=== PATIENT | female | born 1995 | race Caucasian/White ===

== ENCOUNTER 2020-07-10 04:31 | Observation (INO) | payer OTHER, SELFPAY ==
[2020-07-10] VITALS (22 sets, daily range): BP systolic 93–126; BP diastolic 60–108; PULSE 61–90; RESP 10–25; TEMP 36.4–36.7; O2SAT 96–100; BMI 24.0
--- NOTE | 2020-07-10 05:02 | CTR_ITS ---
PROCEDURE INFORMATION: Exam: CT Abdomen And Pelvis With Contrast Exam date and time: 07/10/2020 5:04 AM Age: 24 years old Clinical indication: Pain and abnormal findings; Abnormal lab test; Elevated wbc; Abdominal pain; Localized; Right lower quadrant (rlq); Patient HX: Rlq pain. Wbc of 17k. ; Additional info: Abd pain TECHNIQUE: Imaging protocol: Computed tomography of the abdomen and pelvis with contrast. Radiation optimization: All CT scans at this facility use at least one of these dose optimization techniques: automated exposure control; mA and/or kV adjustment per patient size (includes targeted exams where dose is matched to clinical indication); or iterative reconstruction. Contrast material: OMNI 300; Contrast volume: 95 ml; Contrast route: INTRAVENOUS (IV); COMPARISON: No relevant prior studies available. RADIATION DOSE METRICS: Total DLP (mGy-cm): 516.62 FINDINGS: Liver: Normal. No mass. Gallbladder and bile ducts: Normal. No calcified stones. No ductal dilation. Pancreas: Normal. No ductal dilation. Spleen: Normal. No splenomegaly. Adrenal glands: Normal. No mass. Kidneys and ureters: Normal. No hydronephrosis. Stomach and bowel: Unremarkable. No obstruction. No mucosal thickening. Appendix: There is a prominent inflammatory process in the right lower quadrant. The appendix is dilated to a diameter of 1.5 cm with a thickened enhancing wall. There is an 8 mm appendicoliths. There is prominent infiltration of the fat around the appendix with small amount of extraluminal fluid. There is also free fluid down in the pelvis. These findings are consistent with perforated appendicitis. Intraperitoneal space: There is a small amount of periappendiceal fluid and in the pelvis.. Vasculature: Unremarkable. No abdominal aortic aneurysm. Lymph nodes: Unremarkable. No enlarged lymph nodes. Urinary bladder: Unremarkable as visualized. Reproductive: Unremarkable as visualized. Bones/joints: Unremarkable. No acute fracture. Soft tissues: Unremarkable. CT/CT abdomen pelvis w con* [id number] IMPRESSION: Acute perforated appendicitis. Radiation Dose CTDIVOL = (mGy): DLP = 516.62 (mGy-cm)
--- NOTE | 2020-07-10 05:03 | ED_ITS ---
Documented by User: Ashley Kirkland MD 07/10/20 05:04 HPI - Abdominal Pain General: Chief Complaint: Abdominal Pain Stated Complaint: r sided abd pain/nausea Time Seen by Provider: 07/10/20 04:38 Source: patient Mode of arrival: ambulatory Limitations: no limitations History of Present Illness: HPI narrative: 24-year-old female states that she has been having right lower quadrant pain since yesterday. States it got much worse through the night. States it is worse with movement and with palpation. States her pain is currently 9 out of 10. She has had nausea no vomiting. Her last menstruation was 1 week ago. She denies any vaginal discharge. MD elicited complaint: abdominal pain Associated Symptoms: Reports nausea; Denies chills, dysuria and fever(s) Related Data: Date of Last Menstrual Period: 07/03/20 Review of Systems Const: Denies: fever(s), chills, body aches or change in appetite Eyes: Denies: blurry vision or eye discomfort ENMT: Denies: throat pain or dental pain Card: Denies: chest pain Resp: Denies: dyspnea GI: Reports: abdominal pain and nausea : Denies: dysuria Musc: Denies: neck pain or back pain Skin/Breast: Denies: rash Neuro: Denies: headache(s) Psych: Denies: depression Bhargav/Lymph: Denies: easy bruising All/Imm: Denies: urticaria [facility] Female Reproductive History: Date of last menstrual period: 07/03/20 Physical Exam Const: COMMON NORMALS: no acute distress, patient oriented x3 and healthy appearing HENMT: COMMON NORMALS: normocephalic and atraumatic HEAD & SCALP: normocephalic and atraumatic Eye: COMMON NORMALS: Equal, round and reactive pupils present and EOMs intact bilaterally PUPIL: Yes Equal, round and reactive pupils present Neck/C-Spine: COMMON NORMALS: full ROM and supple Chest: COMMONS NORMALS: normal inspection of the chest and normal palpation of entire chest wall Resp: COMMON NORMALS: normal respiratory effort, No retractions, No use of accessory muscles and clear to auscultation bilaterally AUSCULTATION: clear to auscultation bilaterally Cardio: COMMON NORMALS: regular rate, regular rhythm and No murmurs present (Cardio) RATE: regular rate RHYTHM: regular rhythm GI: COMMON NORMALS: Normal to inspection, nondistended, normoactive bowel sounds present, Soft to palpation and no masses PALPATION: Yes Soft to palpation and Yes Tenderness to palpation present (GI) Details: RLQ Extremity: COMMON NORMALS: normal to inspection and full ROM Neuro: COMMON NORMALS: patient oriented x3, moves all extremities and no focal motor deficits Psych: COMMON NORMALS: mental status grossly normal, Normal thought process present and cooperative THOUGHT PROCESS: Normal thought process present Skin: COMMON NORMALS: no rashes or lesions noted and no wounds GENERAL SKIN EXAM: no rashes or lesions noted Course Vital Signs: Vital signs: Vital Signs Temperature 98.1 F 07/10/20 04:47 Pulse Rate 75 07/10/20 05:30 Respiratory Rate 16 07/10/20 05:30 Blood Pressure 125/75 07/10/20 05:30 Pulse Oximetry 100 07/10/20 05:30 MDM - Abdominal Pain Lab Data: Labs: Lab Results 07/10/20 07/10/20 07/10/20 Range/Units 05:00 05:02 05:02 WBC 17.3 H (4.0-10.0) 10^3/ uL RBC 4.32 (4.1-5.3) 10^6/u L Hgb 13.8 (11.5-15.3) g/dL Hct 39.2 (37.0-47.0) % MCV 90.7 (81-99) fL MCH 31.9 (28.0-34.0) pg MCHC 35.2 (30.0-36.0) g/dL RDW 12.1 (12.1-15.1) % Plt Count 268 (130-400) 10^3/c mm MPV 9.4 (7.4-10.4) fL Neut % (Auto) 86.7 % Lymph % (Auto) 6.5 % [place] % (Auto) 5.9 % Eos % (Auto) 0.1 % Baso % (Auto) 0.3 % Neut # (Auto) 15.01 H (1.8-7.7) 10^3/u L Lymph # (Auto) 1.1 (0.8-4.8) 10^3/u L [place] # (Auto) 1.0 H (0.2-0.9) 10^3/u L Eos # (Auto) 0.0 (0.0-0.8) 10^3/u L Baso # (Auto) 0.1 (0.0-0.1) 10^3/u L Nucleated RBC % (a uto) 0 % Nucleated RBCs # 0.0 /100WBC Sodium 136 (136-145) mmol/L Potassium 3.7 (3.5-5.1) mmol/L Chloride 99 (98-107) mmol/L Carbon Dioxide 27 (22-29) mmol/L Anion Gap 13.7 (5-19) BUN 8 (6-20) mg/dL Creatinine 0.5 (0.5-0.9) mg/dL GFR Calculation 154.3 H (90-130) mL/min Glucose 116 H (65-115) mg/dL Calculated Osmolal ity 281 L (285-295) mOsm/k g Calcium 8.7 (8.5-10.5) mg/dL Total Bilirubin 0.7 (0.15-1.2) mg/dL AST 15 (0-32) U/L ALT 12 (0-33) U/L Alkaline Phosphata se 57 (35-105) IU/L Total Protein 7.9 (6.6-8.7) g/dL Albumin 4.4 (3.5-5.2) g/dL Globulin 3.5 (1.3-4.6) g/dL Lipase 21 (13-60) U/L HCG, Qual (Negative) Urine Color Yellow (Yellow) Urine Appearance Clear (CLEAR) Urine pH 5 (5-7) Ur Specific Gravit y 1.020 (1.005-1.030) Urine Protein Neg (Negative) Urine Glucose (UA) Norm (Normal) Urine Ketones Negative (Negative) Urine Blood Neg (Negative) Urine Nitrate Negative (Negative) Urine Bilirubin Neg (Negative) Urine Urobilinogen Norm (Negative) mg/dL Ur Leukocyte Renae ase Negative (Negative) 07/10/20 Range/Units 05:02 WBC (4.0-10.0) 10^3/ uL RBC (4.1-5.3) 10^6/u L Hgb (11.5-15.3) g/dL Hct (37.0-47.0) % MCV (81-99) fL MCH (28.0-34.0) pg MCHC (30.0-36.0) g/dL RDW (12.1-15.1) % Plt Count (130-400) 10^3/c mm MPV (7.4-10.4) fL Neut % (Auto) % Lymph % (Auto) % [place] % (Auto) % Eos % (Auto) % Baso % (Auto) % Neut # (Auto) (1.8-7.7) 10^3/u L Lymph # (Auto) (0.8-4.8) 10^3/u L [place] # (Auto) (0.2-0.9) 10^3/u L Eos # (Auto) (0.0-0.8) 10^3/u L Baso # (Auto) (0.0-0.1) 10^3/u L Nucleated RBC % (a uto) % Nucleated RBCs # /100WBC Sodium (136-145) mmol/L Potassium (3.5-5.1) mmol/L Chloride (98-107) mmol/L Carbon Dioxide (22-29) mmol/L Anion Gap (5-19) BUN (6-20) mg/dL Creatinine (0.5-0.9) mg/dL GFR Calculation (90-130) mL/min Glucose (65-115) mg/dL Calculated Osmolal ity (285-295) mOsm/k g Calcium (8.5-10.5) mg/dL Total Bilirubin (0.15-1.2) mg/dL AST (0-32) U/L ALT (0-33) U/L Alkaline Phosphata se (35-105) IU/L Total Protein (6.6-8.7) g/dL Albumin (3.5-5.2) g/dL Globulin (1.3-4.6) g/dL Lipase (13-60) U/L HCG, Qual Negative (Negative) Urine Color (Yellow) Urine Appearance (CLEAR) Urine pH (5-7) Ur Specific Gravit y (1.005-1.030) Urine Protein (Negative) Urine Glucose (UA) (Normal) Urine Ketones (Negative) Urine Blood (Negative) Urine Nitrate (Negative) Urine Bilirubin (Negative) Urine Urobilinogen (Negative) mg/dL Ur Leukocyte Renae ase (Negative) Discharge Plan Discharge Patient Disposition: Placed in Observation Clinical Impression: Acute appendicitis with perforation and localized peritonitis Coding Level of Care Code ED Marketing Intern for [facility] Fwd Exam Comprehensive Documented by User: Jordan Baker MD 07/10/20 07:07 HPI - Abdominal Pain General: Chief Complaint: Abdominal Pain Stated Complaint: r sided abd pain/nausea Time Seen by Provider: 07/10/20 04:38 Course Reevaluation(s): Reevaluation #1: CT renal scan returned shows patient has a early perforated appendicitis. Discussed at length with patient patient was been sipping on Sprite since early this morning. Patient is advised to keep stay n.p.o. Will be evaluated by general surgeon for possible appendix removal this afternoon. Patient states understanding. Awaiting general surgery to return call. Time: 06:50 Consultations: Consultation #1: I did discuss with general surgery Dr. Patrick he request patient be placed on Zosyn. He will see patient prepare for the OR. Time: 06:55 Vital Signs: Vital signs: Vital Signs Temperature 98.1 F 07/10/20 04:47 Pulse Rate 75 07/10/20 05:30 Respiratory Rate 16 07/10/20 05:30 Blood Pressure 125/75 07/10/20 05:30 Pulse Oximetry 100 07/10/20 05:30 MDM - Abdominal Pain Differential Diagnosis: Differential diagnosis abdominal pain: Likely abdominal pain, acute appendicitis, constipation, gastroenteritis and small bowel obstruction Lab Data: Labs: Lab Results 07/10/20 07/10/20 07/10/20 Range/Units 05:00 05:02 05:02 WBC 17.3 H (4.0-10.0) 10^3/ uL RBC 4.32 (4.1-5.3) 10^6/u L Hgb 13.8 (11.5-15.3) g/dL Hct 39.2 (37.0-47.0) % MCV 90.7 (81-99) fL MCH 31.9 (28.0-34.0) pg MCHC 35.2 (30.0-36.0) g/dL RDW 12.1 (12.1-15.1) % Plt Count 268 (130-400) 10^3/c mm MPV 9.4 (7.4-10.4) fL Neut % (Auto) 86.7 % Lymph % (Auto) 6.5 % [place] % (Auto) 5.9 % Eos % (Auto) 0.1 % Baso % (Auto) 0.3 % Neut # (Auto) 15.01 H (1.8-7.7) 10^3/u L Lymph # (Auto) 1.1 (0.8-4.8) 10^3/u L [place] # (Auto) 1.0 H (0.2-0.9) 10^3/u L Eos # (Auto) 0.0 (0.0-0.8) 10^3/u L Baso # (Auto) 0.1 (0.0-0.1) 10^3/u L Nucleated RBC % (a uto) 0 % Nucleated RBCs # 0.0 /100WBC Sodium 136 (136-145) mmol/L Potassium 3.7 (3.5-5.1) mmol/L Chloride 99 (98-107) mmol/L Carbon Dioxide 27 (22-29) mmol/L Anion Gap 13.7 (5-19) BUN 8 (6-20) mg/dL Creatinine 0.5 (0.5-0.9) mg/dL GFR Calculation 154.3 H (90-130) mL/min Glucose 116 H (65-115) mg/dL Calculated Osmolal ity 281 L (285-295) mOsm/k g Calcium 8.7 (8.5-10.5) mg/dL Total Bilirubin 0.7 (0.15-1.2) mg/dL AST 15 (0-32) U/L ALT 12 (0-33) U/L Alkaline Phosphata se 57 (35-105) IU/L Total Protein 7.9 (6.6-8.7) g/dL Albumin 4.4 (3.5-5.2) g/dL Globulin 3.5 (1.3-4.6) g/dL Lipase 21 (13-60) U/L HCG, Qual (Negative) Urine Color Yellow (Yellow) Urine Appearance Clear (CLEAR) Urine pH 5 (5-7) Ur Specific Gravit y 1.020 (1.005-1.030) Urine Protein Neg (Negative) Urine Glucose (UA) Norm (Normal) Urine Ketones Negative (Negative) Urine Blood Neg (Negative) Urine Nitrate Negative (Negative) Urine Bilirubin Neg (Negative) Urine Urobilinogen Norm (Negative) mg/dL Ur Leukocyte Renae ase Negative (Negative) 07/10/20 Range/Units 05:02 WBC (4.0-10.0) 10^3/ uL RBC (4.1-5.3) 10^6/u L Hgb (11.5-15.3) g/dL Hct (37.0-47.0) % MCV (81-99) fL MCH (28.0-34.0) pg MCHC (30.0-36.0) g/dL RDW (12.1-15.1) % Plt Count (130-400) 10^3/c mm MPV (7.4-10.4) fL Neut % (Auto) % Lymph % (Auto) % [place] % (Auto) % Eos % (Auto) % Baso % (Auto) % Neut # (Auto) (1.8-7.7) 10^3/u L Lymph # (Auto) (0.8-4.8) 10^3/u L [place] # (Auto) (0.2-0.9) 10^3/u L Eos # (Auto) (0.0-0.8) 10^3/u L Baso # (Auto) (0.0-0.1) 10^3/u L Nucleated RBC % (a uto) % Nucleated RBCs # /100WBC Sodium (136-145) mmol/L Potassium (3.5-5.1) mmol/L Chloride (98-107) mmol/L Carbon Dioxide (22-29) mmol/L Anion Gap (5-19) BUN (6-20) mg/dL Creatinine (0.5-0.9) mg/dL GFR Calculation (90-130) mL/min Glucose (65-115) mg/dL Calculated Osmolal ity (285-295) mOsm/k g Calcium (8.5-10.5) mg/dL Total Bilirubin (0.15-1.2) mg/dL AST (0-32) U/L ALT (0-33) U/L Alkaline Phosphata se (35-105) IU/L Total Protein (6.6-8.7) g/dL Albumin (3.5-5.2) g/dL Globulin (1.3-4.6) g/dL Lipase (13-60) U/L HCG, Qual Negative (Negative) Urine Color (Yellow) Urine Appearance (CLEAR) Urine pH (5-7) Ur Specific Gravit y (1.005-1.030) Urine Protein (Negative) Urine Glucose (UA) (Normal) Urine Ketones (Negative) Urine Blood (Negative) Urine Nitrate (Negative) Urine Bilirubin (Negative) Urine Urobilinogen (Negative) mg/dL Ur Leukocyte Renae ase (Negative) Critical Care Time Critical Care Time: Critical Care Time: No Discharge Plan Discharge Patient Disposition: Placed in Observation Clinical Impression: Acute appendicitis with perforation and localized peritonitis Coding Level of Care Code ED Marketing Intern for [facility] Fwd Exam Comprehensive
[2020-07-10] MEDS: ondansetron 2 mg/ML SDV 2 mL 4 MG IVP ×2 (05:04→07:44)
[2020-07-10 05:06] LABS: Add Urine Microscopic? NO
[2020-07-10] MEDS: morphine 4 mg/mL SDV 1 mL IVP ×2 (05:06→07:44)
[2020-07-10] MEDS: sodium chloride 0.9% 1,000 ML 999 ML IV (05:09)
[2020-07-10 05:11] LABS: Basophils # 0.1 10^3/uL (0.0-0.1); Basophils % 0.3 %; Eosinophils % 0.1 %; Hematocrit 39.2 % (37.0-47.0); Hemoglobin 13.8 g/dL (11.5-15.3); Lymphocytes # 1.1 10^3/uL (0.8-4.8); Lymphocytes % 6.5 %; Mean Corpuscular HGB Conc 35.2 g/dL (30.0-36.0); Mean Corpuscular Hemoglobin 31.9 pg (28.0-34.0); Mean Corpuscular Volume 90.7 fL (81-99); Mean Platelet Volume 9.4 fL (7.4-10.4); Monocytes % 5.9 %; Neutrophils # 15.01 10^3/uL (1.8-7.7); Neutrophils % 86.7 %; Nucleated Red Blood Cells % 0 %; Platelet Count 268 10^3/cmm (130-400); Red Blood Count 4.32 10^6/uL (4.1-5.3); Red Cell Distribution Width 12.1 % (12.1-15.1); White Blood Count 17.3 10^3/uL (4.0-10.0)
[2020-07-10 05:24] LABS: Alanine Aminotransferase 12 U/L (0-33); Albumin Level 4.4 g/dL (3.5-5.2); Alkaline Phosphatase 57 IU/L (35-105); Anion Gap 13.7 (5-19); Aspartate Amino Transferase 15 U/L (0-32); Blood Urea Nitrogen 8 mg/dL (6-20); Calcium 8.7 mg/dL (8.5-10.5); Carbon Dioxide 27 mmol/L (22-29); Chloride 99 mmol/L (98-107); Globulin 3.5 g/dL (1.3-4.6); Glomerular Filtration Rate 154.3 mL/min (90-130); Glucose 116 mg/dL (65-115); Lipase 21 U/L (13-60); Osmolality Calculated 281 mOsm/kg (285-295); Potassium 3.7 mmol/L (3.5-5.1); Sodium 136 mmol/L (136-145); Total Bilirubin 0.7 mg/dL (0.15-1.2); Total Protein 7.9 g/dL (6.6-8.7)
[2020-07-10 05:37] LABS: Bilirubin Urine Neg (Negative); Blood Urine Neg (Negative); Glucose Urine UA Norm (Normal); Ketones Urine Negative (Negative); Leukocyte Esterase Urine Negative (Negative); Nitrate Urine Negative (Negative); Protein Urine Neg (Negative); Urine Appearance Clear (CLEAR); Urine Color Yellow (Yellow); Urobilinogen Urine Norm (Negative); pH Urine 5 (5-7)
[2020-07-10 05:37] LABS: HCG Qualitative Urine. Negative (Negative)
[2020-07-10] MEDS: iohexol 300 mg/mL 100 mL Btl IV (05:54)
[2020-07-10] MEDS: piperacillin-tazobactam 3.375 GM in sodium chloride 0.9% (plus) 50 ML IV ×2 (07:18→13:30)
[2020-07-10] MEDS: sodium chloride 0.9% 1,000 ML 100 ML IV (07:18)
--- NOTE | 2020-07-10 09:36 | PM.HP ---
Providers/Chief Complaint Admitting Physician: Nitin Patrick MD Chief Complaint: r sided abd pain/nausea History of Present Illness Edith Shearer is a 24 year old female who presented to the ER this morning with 36-hour history of abdominal pain. The patient stated the pain started in the right lower quadrant, did not migrate, did not radiate, worse with physical activity. Patient had some nausea denies vomiting has chills no fevers. Denies any constipation or diarrhea. Review of Systems General: Reports: 10 or more systems reviewed and unremarkable except in HPI and below Medications/Allergies Home Medications Medication Instructions Recorded Confirmed Last Taken Type norethindrone-e.estradiol-iron [Lo 1 tab PO DAILY 07/10/20 07/10/20 07/09/20 20:00 History Loestrin Fe] Allergies Allergy/AdvReac Type Severity Reaction Status Date / Time No Known Allergies Allergy Verified 07/10/20 04:51 PFSH Acute Female Reproductive History: Date of last menstrual period: 07/03/20 Vitals/I&O/Wt Last Vital Signs Temp 98.1 F 07/10/20 04:47 Pulse 80 07/10/20 08:49 Resp 18 07/10/20 08:49 BP 105/70 07/10/20 08:49 Pulse Ox 97 07/10/20 08:49 07/09/20 07/10/20 07/10/20 22:59 06:59 14:59 Intake Total 1050 / 1050 Balance 1050 / 1050 Weight last 48 hrs Weight 163 lb Physical Exam Narrative: EXAM NARRATIVE: HEENT: Normocephalic Eye: Sclera /conjunctiva normal Respiratory and chest: Bilateral clear breath sounds on auscultation Cardiovascular: Normal S1 and S2 heart sounds Abdomen: Soft to palpation, tender right lower quadrant, guarding present Neurological: Oriented to place person and time Skin: Intact, no lesions appreciated on gross exam Data : 07/10/20 05:02 07/10/20 05:02 A&P Assessment and plan (1) Acute appendicitis with perforation and localized peritonitis: 24-year-old female with right lower quadrant pain, nausea, chills, leukocytosis and CT scan showing acute appendicitis with contained perforation. Discussed findings with the patient Plan for laparoscopic possible open appendectomy Procedure, risks, benefits and alternatives have been discussed with the patient who wishes to proceed with surgery. Status: Acute Attestations Medical Necessity Statement*: Acute appendicitis requiring surgery Coding Level of Care Code Acute Manager Pulmonary for [facility] Fwd Diagnoses Acute appendicitis with perforation and localized peritonitis K35.32
--- NOTE | 2020-07-10 10:40 | P.ANESASSM_ITS ---
Pre-Anesthetic Assessment Pre-Anesthetic Assessment: Height/Weight: Height 1.75 m Weight 73.936 kg Temp Pulse Resp BP Pulse Ox 97.6 F 83 18 116/61 99 07/10/20 09:52 07/10/20 09:52 07/10/20 09:52 07/10/20 09:52 07/10/20 09:52 Preop Diagnosis: Acute appendicitis Proposed Procedure: Operation Date: 07/10/20 11:50 Proposed Procedures p Laparoscopic Appendectomy(Not Applicable) - Nitin Patrick MD Was Beta Maurilio taken within 24 hours: N/A Social: Social History: No alcohol and No tobacco Exam: Pre-Anes Outpt Exam: alert, oriented x 3, clear to auscultation bilaterally and regular rate & rhythm Airway: Submandibular: WNL Cervical ROM: WNL MP: 2 Dentition: Full History/ROS: No significant history except as noted GI: Comments: acute appe Anesthetic Plan: ASA status: 2 Anesthesia: General Other: Mod RSI Risk of > 500 ml blood loss (7ml/kg in children): No Meds/Allergies Current Medications: Current Medications Generic Name Dose Route Start Last Admin Trade Name Freq PRN Reason Stop Dose Admin Sodium Chloride 1,000 mls @ 100 m ls/hr 07/10/20 07:00 07/10/20 09:52 Sodium Chloride 0.9% IV Infused .Q10H DEB Infusion Morphine Sulfate 4 mg 07/10/20 07:28 07/10/20 07:44 Morphine 4 Mg/Ml Sdv 1 Ml IVP 4 mg Q5M PRN Administration SEVERE PAIN PFSH Anesthesia Female Reproductive History: Date of last menstrual period: 07/03/20 Data Anesthesia CBC & Chem 7: 07/10/20 05:02 07/10/20 05:02 Other Labs: Laboratory Results - last 48 hr 07/10/20 07/10/20 07/10/20 05:00 05:02 05:02 WBC 17.3 H RBC 4.32 Hgb 13.8 Hct 39.2 MCV 90.7 MCH 31.9 MCHC 35.2 RDW 12.1 Plt Count 268 MPV 9.4 Neut % (Auto) 86.7 Lymph % (Auto) 6.5 [place] % (Auto) 5.9 Eos % (Auto) 0.1 Baso % (Auto) 0.3 Neut # (Auto) 15.01 H Lymph # (Auto) 1.1 [place] # (Auto) 1.0 H Eos # (Auto) 0.0 Baso # (Auto) 0.1 Nucleated RBC % (auto) 0 Nucleated RBCs # 0.0 Sodium 136 Potassium 3.7 Chloride 99 Carbon Dioxide 27 Anion Gap 13.7 BUN 8 Creatinine 0.5 GFR Calculation 154.3 H Glucose 116 H Calculated Osmolality 281 L Calcium 8.7 Total Bilirubin 0.7 AST 15 ALT 12 Alkaline Phosphatase 57 Total Protein 7.9 Albumin 4.4 Globulin 3.5 Lipase 21 HCG, Qual Urine Color Yellow Urine Appearance Clear Urine pH 5 Ur Specific [place] 1.020 Urine Protein Neg Urine Glucose (UA) Norm Urine Ketones Negative Urine Blood Neg Urine Nitrate Negative Urine Bilirubin Neg Urine Urobilinogen Norm Ur Leukocyte Esterase Negative 07/10/20 05:02 WBC RBC Hgb Hct MCV MCH MCHC RDW Plt Count MPV Neut % (Auto) Lymph % (Auto) [place] % (Auto) Eos % (Auto) Baso % (Auto) Neut # (Auto) Lymph # (Auto) [place] # (Auto) Eos # (Auto) Baso # (Auto) Nucleated RBC % (auto) Nucleated RBCs # Sodium Potassium Chloride Carbon Dioxide Anion Gap BUN Creatinine GFR Calculation Glucose Calculated Osmolality Calcium Total Bilirubin AST ALT Alkaline Phosphatase Total Protein Albumin Globulin Lipase HCG, Qual Negative Urine Color Urine Appearance Urine pH Ur Specific [place] Urine Protein Urine Glucose (UA) Urine Ketones Urine Blood Urine Nitrate Urine Bilirubin Urine Urobilinogen Ur Leukocyte Esterase Cardiac Studies: No Data to Display
[2020-07-10] MEDS: sodium chloride 0.9% 1,000 ML 30 ML IV (12:30)
--- NOTE | 2020-07-10 14:26 | PM.OP ---
Operative Report Date of procedure: July 10, 2020 Pre-op Diagnosis: Acute appendicitis Post-op Findings: Acute appendicitis Procedure Done: Laparoscopic appendectomy Specimens removed/disposition: Appendix Surgeon: Nitin Patrick Anesthesia: General Condition: stable Disposition: PACU Procedure: The patient was taken to the Operating Room and intubated under general anesthesia after antibiotic had been administered. Using a 15 blade, a 1-cm infraumbilical incision was made and using open Maame technique, the peritoneal cavity was entered. A 12mm port with balloon was placed and 14 mm of pneumoperitoneum was created and 10-mm 30 degree scope was introduced. Two separate 5mm ports were placed in the left and right lower quadrant under direct visualization. The appendix was noted in the right lower quadrant, inflamed and adherent to the cecal wall.. Using [place] forceps, an opening was made in the mesoappendix near the base of the appendix. An Endo LOVE stapler 45mm long 3.5mm blue load was introduced to divide the appendix at it's base. Using electrocautery, the mesoappendix including the appendicular artery was divided. There was no bleeding noted and the staple line appeared intact. The right lower quadrant was irrigated with saline and an EndoCatch bag was introduced to remove the appendix. All three ports were removed under direct visualization and there was no bleeding noted on the port sites. 10 cc of 0.5% Marcaine was infiltrated at the port sites. The fascia at the umbilical port was closed using figure of eight 0-Vicryl sutures and subcutaneous tissue was approximated using 3-0 Vicryl and skin at all 3 port sites was closed using 4-0 Monocryl and surgical glue. The patient was extubated and transferred to recovery room in stable condition.
[2020-07-10] MEDS: meperidine 50 mg/mL INJ 12.5 MG IVP (15:05)
[2020-07-10] MEDS: sodium chloride 0.9% 1,000 ML 50 ML IV (15:21)
[2020-07-10] MEDS: HYDROcodone-acetaminophen 5-325 mg Tablet 1 TAB PO (15:55)
--- NOTE | 2020-07-11 10:41 | ANE.PACU2 ---
Inpatient post-anesthesia follow up: Airway intact: Yes Vital signs: Temperature 97.6 F Pulse Rate [Monito r] 88 Pulse Rate 70 Respiratory Rate 25 Blood Pressure [Le ft Arm] 113/67 Blood Pressure 113/73 Pulse Oximetry 98 Oxygen Delivery Me thod Room Air Oxygen Flow Rate 8 Fraction of Inspir ed Oxygen Hydration adequate: Yes Nausea and vomiting: No Pain level: 2 Mental status: Baseline
== END 2020-07-10 16:18 | disposition home or self-care (01) ==
LOC: ER 08:09 → MEDSURG 08:20
PROVIDERS: Emergency Medicine; Admitting Provider Surgery; Emergency Provider Emergency Medicine; Visit Provider Surgery
PROC: 0DTJ4ZZ Resection of Appendix, Percutaneous Endoscopic Approach (ICD-10-PCS; CPT 44970; principal; 2020-07-10 11:30)
DX: K35.32 Acute appendicitis with perforation, localized peritonitis, and gangrene, without abscess (principal)
CPT/HCPCS: 44970; 74177; 80053; 81003; 81025; 83690; 85025; 88304; 96361; 96365; 96375; 96376; 99285; G0378; J0131; J1100; J1200; J2175; J2250; J2270; J2405; J2543; J2704; J2710; J3010; J3490; J7030; Q9967